=== PATIENT | male | born 2000 | race Caucasian/White ===

== ENCOUNTER 2020-04-06 16:37 | Emergency (ER) | payer BC ==
--- NOTE | 2020-04-06 16:46 | PDOC ---
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 Pt states he ate some egg and has difficulty with food impaction on the occasion, precipitating an episode of kadie sea/ NBNB emesis at 430PM. Pt then developed chest tightness, SOB, dizziness and palpitations. He states the palpitations lasted approx 10 minutes and were intense, where he noted his heart rate elevated to 130-160s. He has not had this intense or prolonged episodes before Of note, pt has had episodes of tachycardia/PVCs intermittently for a long time; He states he has had recent episodes in August 2019 and March 2020, where they typically last about 1 minute maximum. 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 He denies OTC supplements, caffeine or stimulants. Denies exercise intolerance last stress test about 2 years ago which was normal, and echo in 2018 which was unremarkable. Denies fever, chills, chest pain, SOB, palpitation, dizziness, weakness, diarrhea, abdominal pain, bladder and bowel problems, focal weakness/paresthesias, leg swelling/pain, rash. No sick contacts or travel. No new changes in medications. No ASA or anticoagulant use. 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 No tobacco, ETOH or drug use. Meds: PPI Family history: noncontributory Peds [employer] maintenance worker: Dr French Goins [phone] Review of systems Constitutional: no fevers or chills. No weakness HEENT: no headache. No congestion. No visual/hearing disturbances. +dizziness. CVS: no syncope. +chest tightness, +palpitations. Resp: +sob. No cough. Gastrointestinal: no abdominal pain, diarrhea. +nausea/vomiting. Genitourinary: no urinary sx, hematuria. MUSCULOSKELETAL: No joint pain and swelling. No neck or back pain. SKIN: no redness or skin changes, no discharge, no rash. No wounds. Hematologic: no easy bruising/bleeding. NEUROLOGIC: No headache, LOC or altered mental status. No weakness, numbness or tingling. Psych: no anxiety or depression Allergic/Immunologic: + allergies All other systems reviewed and negative, or as documented in HPI. Physical exam General: awake and alert, NAD. anxious. HEENT: NCAT, PERRL, EOMI, clear conjunctiva, anicteric, moist mucus membranes, clear oropharynx, no oral lesions.. Neck: neck supple, FROM Resp: CTAB, normal and even respirations, no respiratory distress CVS: +tachycardic, +diastolic murmur, 2+ peripheral pulses throughout, no peripheral edema Chest: midline sternotomy scar Abdomen: soft, NTND, no rebound or guarding. Back: nontender, normal inspection and ROM MSK: no edema, HAWK x4, ROM intact. No clubbing or cyanosis. normal bulk and tone. Extremities: no calf tenderness Neuro: alert, oriented appropriately; no focal neurologic deficits Psych: Calm and cooperative, mildly anxious. Skin: warm and well perfused, cap refill <2 sec, normal color, no rash or skin discoloration. 04/06/20 17:21 04/06/20 17:41 Past History - Medical History Allergies/Adverse Reactions: Allergies Allergy/AdvReac Type Severity Reaction Status Date / Time tree nut Allergy Severe Swelling Verified 04/06/20 17:13 Home Medications: Ambulatory Orders Omeprazole 20 mg PO DAILY 04/06/20 *Physical Exam - Vital Signs Last Vital Signs Temp Pulse Resp BP Pulse Ox 88 15 109/63 100 04/06/20 18:10 04/06/20 18:10 04/06/20 18:10 04/06/20 18:10 Heart Score/ECG Review #1 ECG reviewed & interpreted by me at: 16:45 Compared to previous ECG there are: Previous ECG unavail 04/06/20 17:35 EKG sinus tachycardia at 108 bpm, right bundle branch block with wide QRS, ST and T wave segments and morphology normal. Nonspecific T wave abnormalities likely rate related ED Treatment Course - LABORATORY CBC & Chemistry Diagram: 04/06/20 16:55 04/06/20 16:55 - ADDITIONAL ORDERS Additional order review: 04/06/20 16:55 RBC 5.11 MCV 86.6 MCHC 33.7 RDW 11.2 L MPV 8.5 Neutrophils % No Result Required. Lymphocytes % No Result Required. - RADIOLOGY Radiology Studies Ordered: Category Date Time Status CHEST X-RAY PORTABLE* [RAD] Stat Radiology 04/06/20 17:13 Completed - Medications Given in the ED: ED Medications Discontinued Medications Generic Name Dose Route Start Last Admin Trade Name Freq PRN Reason Stop Dose Admin Sodium Chloride 1,000 ml 04/06/20 17:14 04/06/20 17:00 Normal Saline - IV 04/06/20 17:15 1,000 ml ONCE ONE Administration Medical Decision Making - Medical Decision Making 04/06/20 17:33 Vital Signs Temp Pulse Resp BP Pulse Ox 96 H 14 106/73 97 04/06/20 17:10 04/06/20 17:10 04/06/20 17:10 04/06/20 17:10 DDx chest pain: ACS, coronary vasospasm, NSTEMI, arrhythmia, unstable angina, PE, dissection, PUD, esophageal spasm, GERD, gastritis, costochondritis, pneumonia, pleurisy, pericarditis/myocarditis. dehydration, electrolyte/metabolic derangements. Considered but clinically doubt based on HPI and PE: Low suspicion for pulmonary embolism or dissection. Chest pain negative: No evidence of ACS, pericarditis, myocarditis, pulmonary embolism, pneumothorax, pneumonia, Zoster, or esophageal perforation. Historically not abrupt in onset, tearing or ripping, pulses symmetric, no evidence of aortic dissection. DDx SOB: ACS, PE, PTX, CHF, COPD exac, pulmonary edema, pleurisy, pneumonia, viral syndrome. effusion. anemia, electrolyte/metabolic derangements. Considered but clinically doubt based on HPI and PE: Low suspicion for pulmonary embolism or dissection. Interpreted by ED Physician: CXR (2 view): no acute abnormality: no infiltrates, bones appear intact and structures normal alignment, cardiac silhouette within normal limits. no free air under diaphragm, no pneumothorax. EKG sinus tachycardia at 108 bpm, right bundle branch block with wide QRS, ST and T wave segments and morphology normal. Nonspecific T wave abnormalities likely rate related labs and lytes here wnl. trop is negative leukocytosis is noted, 16K, but nontoxic, no fever or infectious sx. 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 he has had holter monitor liat d today with PVCs/PACS, nonsustained tachycardia, sinus tachycardia with exercise no ventricular dysrhythmias. last echo in 2018 with normal LVEF, RV dilation and pulmonic insufficiency, moderate pulmonic valve stenosis with normal RV function. he is due for visit to [facility] 04/15/20 to be planned for followup, repeat echo/cardiac mri and possible valve replacement ekg is sinus rhythm with RBBB (which in comparison is similar in appearance) and CXR with globular heart, sternotomy scars, due to RV dilation. 04/07/20 19:49 Pt to be discharged in stable condition. Patient and family made aware of clinical impression, treatment recommendations and disposition plan, return precautions discussed (including but not limited to new or persistent/worsening symptoms, pain, fevers, or signs of infection, chest pain, respiratory distress, inability to tolerate oral intake, dehydration, syncope, or neurologic changes). Follow up with logistics specialist as recommended, follow up information provided, take medications as instructed for duration of time. continue with supportive care, avoid triggers and precipitants. All questions answered to patient's satisfaction and expressed understanding and comfort with this. At the time of discharge, the patient is alert, clinically improved, tolerating po and verbalizes understanding of instructions, satisfied with the care received and felt comfortable with the plan. Patient does not suffer from an acute life-threatening medical condition at this time and is safe for outpatient follow-up. Discharge - Discharge Information Problems reviewed: Yes Clinical Impression/Diagnosis: Palpitations, Pulmonic stenosis, congenital Condition: Improved Disposition: HOME - Admission No - Follow up/Referral Referrals: French Goins [Staff Physician] - - Patient Discharge Instructions Patient Printed Discharge Instructions: DI for Arrhythmias, DI for Palpitations Additional Instructions: 1) Please follow-up with your [employer] maintenance worker Dr Goins in the next 1-2 days. Please call tomorrow for for any urgent issues. 2) You were given a copy of the tests performed today. Please bring the results with you and review them with your primary care doctor. Your laboratory / imaging results were normal, and unchanged per your records your enzymes were normal. your electrolytes were normal. 3) If you have any worsening of symptoms or any other concerns please return to the ED immediately. Return if worsening symptoms including fevers, headache, vomiting, visual or hearing disturbances, abdominal pain, chest pain, shortness of breath, syncope, dehydration, inability to take things by mouth/vomiting, altered mental status, or worsening concerning symptoms. 4) Please continue taking your home medications as directed. avoid stress or potential triggers for your symptoms. minimize stress/anxiety inducing agents or external factors. Stay well hydrated and rest adequately. Make an appointment. If you cannot follow-up with your primary care doctor please return to the ED - Post Discharge Activity
[2020-04-06 17:05] VITALS: BMI 19.9
[2020-04-06] MEDS ORDERED: SODIUM CHLORIDE 0.9% 500 ML INFUS.BAG IV ONE (17:14)
[2020-04-06 17:53] LABS: ALBUMIN 4.2 g/dl (3.4-5.0); BILIRUBIN,TOTAL 0.7 mg/dl (0.2-1); CALCIUM 9.3 mg/dl (8.5-10); CREATININE 1.2 mg/dl (0.55-1.3); MAGNESIUM 2.3 mg/dL (1.8-2.4); MCH 29.2 pg (25.7-33.7); POTASSIUM 3.8 mmol/L (3.5-5.1); RDW 11.2 % (11.9-15.9); TOT PROT 6.4 g/dl (6.4-8.2)
[2020-04-06 17:57] LABS: HEMATOCRIT 44.2 % (35.4-49); HEMOGLOBIN 14.9 GM/dl (11.7-16.9); MCHC 33.7 g/dl (32.0-35.9); MEAN CELL VOLUME 86.6 fl (80-96); MEAN PLT VOLUME 8.5 fl (7.5-11.1); PLATELET COUNT 286 K/MM3 (134-434); RBC 5.11 M/mm3 (4.00-5.60)
[2020-04-06 18:19] VITALS: BP 109/63; PULSE 88
[2020-04-06 20:43] LABS: PLATELET ESTIMATE ADEQUATE
--- NOTE | 2020-04-07 09:23 | EKG ---
Test Reason : Blood Pressure : / mmHG Vent. Rate : 108 BPM Atrial Rate : 108 BPM P-R Int : 164 ms QRS Dur : 132 ms QT Int : 374 ms P-R-T Axes : 078 -14 080 degrees QTc Int : 501 ms SINUS TACHYCARDIA BIATRIAL ENLARGEMENT NON-SPECIFIC INTRA-VENTRICULAR CONDUCTION BLOCK POSSIBLE INFERIOR INFARCT , AGE UNDETERMINED T WAVE ABNORMALITY, CONSIDER ANTEROLATERAL ISCHEMIA ABNORMAL ECG NO PREVIOUS ECGS AVAILABLE Confirmed by MD JEFF, DEUCE ([id number]) on 04/07/2020 9:23:34 AM Referred By: Confirmed By:DEUCE AGUILAR MD
== END 2020-04-06 18:47 | disposition home or self-care (01) ==
LOC: FER 16:37
DX: R00.2 Palpitations (principal); Q22.1 Congenital pulmonary valve stenosis
CPT/HCPCS: 36415; 71045-TC-FY; 80053; 83735; 84484; 85025; 93005; 99285-25